=== PATIENT | female | born 1995 | race Caucasian/White ===

== ENCOUNTER → 2022-07-10 10:56 | Outpatient (BNVA) | payer MEDICAID, SELFPAY | PROVIDERS: Visit Provider Advanced Practice Midwife | DX: O99.210 Obesity complicating pregnancy, unspecified trimester (principal); Z3A.00 Weeks of gestation of pregnancy not specified; Z32.01 Encounter for pregnancy test, result positive | CPT/HCPCS: 81025; 99202 ==

== ENCOUNTER 2022-07-25 11:01 | Outpatient (REF) | payer MEDICAID, SELFPAY ==
--- NOTE | ~2022-07-25 | US_ITS ---
EXAMINATION: US OBSTETRICAL ULTRASOUND CLINICAL INFORMATION: Size and dates. COMPARISON: None. LMP: Unsure LMP. Gestational age by maternal dates is not known. Estimated date of delivery by maternal dates is unknown. TECHNIQUE: Routine transabdominal imaging of the pelvis is performed. FINDINGS: There is a single intrauterine gestational sac with visible yolk sac, embryo/fetus, and cardiac activity. There is small subchorionic hemorrhage seen. HR: 169 beats per minute. CRL (crown rump length): 4.76 cm (11 weeks and 4 days +/- 4 days). DEDE (estimated date of delivery): 02/09/2023 +/- 4 days. MATERNAL ADNEXA: The right maternal ovary not seen. The left maternal ovary measures 2.45 x 1.87 x 2.28 cm. There is no significant maternal adnexal mass. No maternal pelvic ascites. US/US OB <= 14 weeks fetus IMPRESSION: 1. Single intrauterine gestation with ultrasound gestational age of 11 weeks 4 days +/- 4 days. 2. Estimated date of delivery is 02/09/2023 +/- 4 days. 3. No maternal adnexal mass or pelvic ascites.
== END 2022-07-25 11:02 | disposition home or self-care (01) ==
LOC: HO.HMGCX 11:01
PROVIDERS: Visit Provider Advanced Practice Midwife
DX: O99.210 Obesity complicating pregnancy, unspecified trimester (principal); E66.01 Morbid (severe) obesity due to excess calories; Z3A.11 11 weeks gestation of pregnancy
CPT/HCPCS: 76801

== ENCOUNTER → 2022-07-31 13:18 | Outpatient (BNVA) | payer MEDICAID, SELFPAY | PROVIDERS: Visit Provider Advanced Practice Midwife | DX: O99.211 Obesity complicating pregnancy, first trimester (principal); E66.01 Morbid (severe) obesity due to excess calories; Z3A.00 Weeks of gestation of pregnancy not specified | CPT/HCPCS: 99212 ==

== ENCOUNTER → 2022-08-05 10:01 | Outpatient (BNVA) | payer MEDICAID, SELFPAY | PROVIDERS: Visit Provider Advanced Practice Midwife | DX: Z34.81 Encounter for supervision of other normal pregnancy, first trimester (principal) | CPT/HCPCS: 99212 ==

== ENCOUNTER 2022-08-22 12:04 | Outpatient (REF) | payer MEDICAID, SELFPAY ==
[2022-08-22 14:14] LABS: Hematocrit 37.3 % (37.0-47.0); Hemoglobin 12.1 g/dl (12.0-16.0); Mean Corpuscular HGB Conc 32.4 g/dl (31.0-35.0); Mean Corpuscular Hemoglobin 26.6 pg (27.0-33.0); Mean Platelet Volume 10.3 fL (9.4-12.3); Platelet Count 272 X10*3/uL (160-400); Red Blood Count 4.55 X10*6/uL (4.20-5.50); Red Cell Distribution Width 12.6 % (11.0-16.0); White Blood Count 11.6 X10*3/uL (4.8-10.8)
[2022-08-22 14:41] LABS: Glucose 1 Hour PP 50gm Dose 146 mg/dL (60-140)
[2022-08-22 15:21] LABS: Amphetamine Screen Urine Not Detected (Not Detect); Barbiturates, Urine Not Detected (Not Detect); Benzodiazepines Screen Urine Not Detected (Not Detect); Cannabinoid Screen Urine Not Detected (Not Detect); Cocaine Screen Urine Not Detected (Not Detect); Fentanyl, urine Not Detected (Not Detect); Opiate Screen Urine Not Detected (Not Detect); Phencyclidine Screen Urine Not Detected (Not Detect)
[2022-08-23 09:14] LABS: Syphilis Screen Nonreactive (Nonreactive)
[2022-08-23 09:17] LABS: HBsAGNum1 0.17 S/CO (0.00-0.99); HIV AB/AG Nonreactive (Nonreactive); HIV Num 1 0.08 S/CO (0.00-0.99); Hepatitis B Surface Antigen Negative (Negative); ~HepC Num1 0.11 S/CO (0.00-0.79); ~Hepatitis C Antibody Nonreactive (Nonreactive)
[2022-09-04 01:21] LABS: CF Ethnicity NOT GIVEN; Cystic Fibrosis NEGATIVE (NEGATIVE)
== END 2022-08-22 12:05 | disposition home or self-care (01) ==
LOC: HO.LAB 12:04
PROVIDERS: Visit Provider Advanced Practice Midwife
DX: Z32.01 Encounter for pregnancy test, result positive (principal); Z11.4 Encounter for screening for human immunodeficiency virus [HIV]
CPT/HCPCS: 80307; 81220; 82950; 85027; 86762; 86780; 86787; 86803; 86850; 86900; 87086; 87340; 87389

== ENCOUNTER 2022-08-26 10:05 | Outpatient (REF) | payer MEDICAID, SELFPAY ==
[2022-08-26 15:38] LABS: CT PCR NOT DETECTED (Not Detect.); NG PCR NOT DETECTED (Not Detect.)
[2022-08-27 12:07] LABS: BV Int Neg Control Negative (Negative); BV Int Pos Control Positive (Positive)
== END 2022-08-26 10:06 | disposition home or self-care (01) ==
LOC: HO.LNP 10:05
PROVIDERS: Visit Provider Advanced Practice Midwife
DX: O99.212 Obesity complicating pregnancy, second trimester (principal); E66.01 Morbid (severe) obesity due to excess calories; Z3A.16 16 weeks gestation of pregnancy
CPT/HCPCS: 81003; 87480; 87491; 87510; 87591; 87660; 88142; 99212

== ENCOUNTER → 2022-09-24 10:29 | Outpatient (BNVA) | payer MEDICAID, SELFPAY | PROVIDERS: Visit Provider Advanced Practice Midwife | DX: O99.212 Obesity complicating pregnancy, second trimester (principal); E66.01 Morbid (severe) obesity due to excess calories; O99.810 Abnormal glucose complicating pregnancy; Z3A.20 20 weeks gestation of pregnancy; Z90.721 Acquired absence of ovaries, unilateral | CPT/HCPCS: 99212 ==

== ENCOUNTER 2022-10-24 10:15 | Outpatient (REF) | payer MEDICAID, SELFPAY | END 2022-10-24 10:16 | disposition home or self-care (01) | LOC: HO.LAB 10:15 | PROVIDERS: Visit Provider Advanced Practice Midwife | DX: Z13.89 Encounter for screening for other disorder (principal) ==

== ENCOUNTER → 2022-10-25 10:56 | Outpatient (BNVA) | payer MEDICAID, SELFPAY | PROVIDERS: Visit Provider Advanced Practice Midwife | DX: O99.212 Obesity complicating pregnancy, second trimester (principal); O99.810 Abnormal glucose complicating pregnancy; O99.512 Diseases of the respiratory system complicating pregnancy, second trimester; J45.909 Unspecified asthma, uncomplicated; Z3A.24 24 weeks gestation of pregnancy | CPT/HCPCS: 99212 ==

== ENCOUNTER 2023-01-16 10:37 | Outpatient (REF) | payer MEDICAID, SELFPAY ==
[2023-01-16 16:27] LABS: CT PCR NOT DETECTED (Not Detect.); NG PCR NOT DETECTED (Not Detect.)
[2023-01-17 09:06] LABS: BV Int Neg Control Negative (Negative); BV Int Pos Control Positive (Positive)
[2023-01-17 10:57] LABS: Allergic to Penicillin? No
== END 2023-01-16 10:38 | disposition home or self-care (01) ==
LOC: HO.LNP 10:37
PROVIDERS: Visit Provider Advanced Practice Midwife
DX: O09.33 Supervision of pregnancy with insufficient antenatal care, third trimester (principal); O36.63X0 Maternal care for excessive fetal growth, third trimester, not applicable or unspecified; O99.213 Obesity complicating pregnancy, third trimester; E66.01 Morbid (severe) obesity due to excess calories; Z3A.36 36 weeks gestation of pregnancy
CPT/HCPCS: 0353U; 81003; 87150; 87480; 87510; 87660; 99212

== ENCOUNTER 2023-01-22 09:56 | Outpatient (REF) | payer MEDICAID, SELFPAY ==
[2023-01-22 10:57] LABS: Hematocrit 36.1 % (37.0-47.0); Hemoglobin 11.6 g/dl (12.0-16.0); Mean Corpuscular HGB Conc 32.1 g/dl (31.0-35.0); Mean Corpuscular Hemoglobin 26.3 pg (27.0-33.0); Mean Corpuscular Volume 81.9 fL (80.0-98.0); Mean Platelet Volume 11.3 fL (9.4-12.3); Platelet Count 230 X10*3/uL (160-400); Red Blood Count 4.41 X10*6/uL (4.20-5.50); Red Cell Distribution Width 13.3 % (11.0-16.0); White Blood Count 9.8 X10*3/uL (4.8-10.8)
[2023-01-22 11:12] LABS: Estimated Average Glucose 117 mg/dL; Hemoglobin A1c % 5.7 %
[2023-01-22 11:51] LABS: Glucose Fasting 70 mg/dL (60-99)
[2023-01-22 12:04] LABS: Glucose 1 Hour 164 mg/dL
[2023-01-22 12:16] LABS: Alanine Aminotransferase 7 U/L (0-31); Aspartate Amino Transferase 11 U/L (5-31)
[2023-01-22 12:20] LABS: HBsAGNum1 0.32 S/CO (0.00-0.99); HIV AB/AG Nonreactive (Nonreactive); HIV Num 1 0.05 S/CO (0.00-0.99); Hepatitis B Surface Antigen Negative (Negative); ~HepC Num1 0.26 S/CO (0.00-0.79); ~Hepatitis C Antibody Nonreactive (Nonreactive)
[2023-01-22 12:22] LABS: Syphilis Screen Nonreactive (Nonreactive)
[2023-01-22 13:56] LABS: Glucose 2 Hour 148 mg/dL
[2023-01-22 15:50] LABS: Glucose 3 Hour 142 mg/dL
== END 2023-01-22 09:57 | disposition home or self-care (01) ==
LOC: HO.LAB 09:56
PROVIDERS: Visit Provider Advanced Practice Midwife
DX: O09.30 Supervision of pregnancy with insufficient antenatal care, unspecified trimester (principal); O99.210 Obesity complicating pregnancy, unspecified trimester; E66.01 Morbid (severe) obesity due to excess calories; O26.899 Other specified pregnancy related conditions, unspecified trimester; R73.09 Other abnormal glucose; Z3A.00 Weeks of gestation of pregnancy not specified
CPT/HCPCS: 36415; 82951; 83036; 84450; 84460; 85027; 86780; 86803; 87340; 87389

== ENCOUNTER 2023-03-03 07:03 | Emergency (ER) | payer MEDICAID, SELFPAY ==
--- NOTE | ~2023-03-03 | US_ITS ---
EXAMINATION: US ABDOMEN COMPLETE CLINICAL INFORMATION: Upper abdominal pain. COMPARISON: None available. TECHNIQUE: Real-time imaging of the abdominal viscera. FINDINGS: PANCREAS: Normal. ABDOMINAL AORTA: The proximal, mid, and distal segments are normal in caliber. INFERIOR VENA CAVA: Visualized portions are normal. LIVER: Normal. The liver is normal in size. The liver contour is normal. Parenchymal echogenicity is normal. No focal hepatic lesion. There is no intrahepatic biliary duct dilatation seen. GALLBLADDER: There are a few nonmobile echogenic stones. The gallbladder is physiologically distended without evidence of stones, sludge, polyps, wall thickening or pericholecystic fluid. COMMON BILE DUCT: Normal in caliber measuring 0.22 cm in diameter. RIGHT KIDNEY: Normal. No hydronephrosis. No renal calculi or focal parenchymal lesions. The kidney measures 12.7 cm in maximum dimension. LEFT KIDNEY: Normal. No hydronephrosis. No renal calculi or focal parenchymal lesions. The kidney measures 12.6 cm in maximum dimension. SPLEEN: Normal. The spleen measures 10.9 cm in maximum dimension. FREE FLUID: None. US/US abdomen complete IMPRESSION: 1. There are a few nonmobile echogenic gallstones without wall thickening. 2. The rest of the abdominal ultrasound is unremarkable.
[2023-03-03 07:06] VITALS: BP 111/62; PULSE 73; RESP 18; TEMP 36.7; O2SAT 99; BMI 39.9
[2023-03-03 07:23] LABS: Hematocrit 39.9 % (37.0-47.0); Hemoglobin 12.7 g/dl (12.0-16.0); Mean Corpuscular HGB Conc 31.8 g/dl (31.0-35.0); Mean Corpuscular Hemoglobin 26.8 pg (27.0-33.0); Mean Corpuscular Volume 84.2 fL (80.0-98.0); Mean Platelet Volume 10.3 fL (9.4-12.3); Platelet Count 368 X10*3/uL (160-400); Red Blood Count 4.74 X10*6/uL (4.20-5.50); Red Cell Distribution Width 12.8 % (11.0-16.0); White Blood Count 16.7 X10*3/uL (4.8-10.8)
[2023-03-03 07:37] LABS: Alanine Aminotransferase 43 U/L (0-31); Albumin Level 4.1 g/dL (3.5-5.0); Alkaline Phosphatase 109 U/L (39-117); Anion Gap 11 (12-20); Aspartate Amino Transferase 78 U/L (5-31); Bilirubin Direct 0.3 mg/dL (0.0-0.5); Bilirubin Total 0.8 mg/dL (0.0-1.0); Blood Urea Nitrogen 8 mg/dL (9-16); Calcium 9.2 mg/dL (8.4-10.2); Carbon Dioxide 26 mmol/L (22-29); Chloride 108 mmol/L (96-108); Creatinine Clr Calc Pharmacy 135.7; Estimated Glomerular Filt Rate > 60; Glucose Random 149 mg/dL (60-115); Lipase 24 U/L (8-78); Potassium 4.2 mmol/L (3.3-5.1); Sodium 141 mmol/L (135-145); Total Protein 6.6 g/dL (6.5-8.0)
--- NOTE | 2023-03-03 07:45 | ED.ABDPAIN ---
HPI - Abdominal Pain General Chief Complaint: Abdominal Pain Stated Complaint: UPPER ABD AND BACK PAIN Time Seen by Provider: 03/03/23 07:28 Source: patient Mode of arrival: ambulatory Limitations: no limitations History of Present Illness MD elicited complaint: abdominal pain Pertinent past history: none Onset (ago): hour(s) (3) Pain Consistency: intermittent Location: epigastric Severity: moderate Pain scale (0-10): 6 Quality: aching Radiation: RUQ and R flank Migration to: no migration Exacerbating factors: other (Lying down) Relieving factors: nothing Associated symptoms: nausea Related Data Hx Last Menstrual Period: Has not had. Since giving in January to her child Home Medications Medication Instructions Recorded Confirmed OEE-akxb-IY-omega 3-fat com #1 27 cap PO 07/10/22 01/16/23 mg-1 mg-300 mg capsule albuterol sulfate 90 mcg/actuation 2 puff inhalation Q4H PRN 07/31/22 01/16/23 aerosol inhaler (ProAir HFA) Previous Rx's Medication Instructions Recorded vitamin with calcium 1 tab PO DAILY #90 tabs 01/16/23 no.72-iron 27 mg-folic acid 1 mg tablet ( Vitamins Plus Low Iron) metronidazole 500 mg tablet 500 mg PO Q12H #14 tabs 01/17/23 Allergies Allergy/AdvReac Type Severity Reaction Status Date / Time No Known Allergies Allergy Verified 01/16/23 10:52 COUNTS INCLUDE 234 BEDS AT THE [facility] Past Medical History Medical History Asthma Depression Surgical History S/P removal of ovarian cyst Hx Last Menstrual Period: Has not had. 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 at home: Yes Do you presently have visiting nurse or other home services: No Alcohol intake: never Patient Tobacco Use Status: Never used Tobacco Smoked in Last 30 Days: No e-Cigarette/Vaping Use: Never Used Use of substances other than those prescribed or required for medical reasons: No Advance Directives: No Advance Directives Information Provided: No Patient : No Physical Exam ED Vital Signs: Vital Signs - 24 hr 03/03/23 07:06 03/03/23 09:01 Temperature 98.1 F Pulse Rate 73 75 Respiratory Rate 18 12 Blood Pressure 111/62 99/70 Pulse Oximetry 99 95 Oxygen Delivery Method Room Air Room Air BMI result Body Mass Index 39.9 GEN: Well developed, no acute distress, alert, oriented HEENT: Normocephalic, atraumatic, normal external ears, nose appears normal, no oropharyngeal edema or exudates Eyes: Normal to appearance Neck: Supple, no lymphadenopathy Respiratory: Talks in complete sentences, no respiratory distress, clear to auscultation bilaterally Cardiovascular: Regular rate and rhythm, no murmurs rubs or gallops Abdomen: Soft, nontender, nondistended, no guarding, no rebound Back: No CVA tenderness Extremities: No clubbing cyanosis or edema Neurologic: No focal neurologic deficits, cranial nerves 2-12 intact, strength is 5/5 bilaterally Skin: No rash Course Course Course Narrative: 27-year-old female. by about 2-3 months presents with upper abdominal pain. Her repeat evaluation reveals a normal abdomen, no tenderness, rebound or guarding, negative Bolden sign. Ultrasound identified gallstones. I suspect with epigastric abdominal pain radiating around to the right side and right flank that she is in fact having biliary colic. Again the differential diagnosis at this point with predominantly include gastritis or ulcer. Will start the patient on a PPI. Will refer the patient to General surgery. Patient is aware of reasons to return to the emergency department. She has been counseled regarding an appropriate diet. Medical Decision Making Medical Decision Making MDM Narrative: 27-year-old female presents with upper abdominal pain. Her examination is benign. Differential diagnosis could include gastritis, ulcer, biliary colic, pancreatitis, IBD, IBS, renal colic, gastroenteritis, bacterial overgrowth. My plan for this patient will include ultrasound to rule out hydronephrosis, biliary related symptoms, pancreatitis. Will check laboratory analysis including a CBC, chemistry, lipase. Will provide patient with Tylenol and a GI cocktail as well as an H2 rich to see if this will improve her symptoms. Patient is nontoxic appearing at this time. Do not see an indication for CT scan. Doubt vascular catastrophe. There are no palpable masses or pulsatile masses on exam. Differential Diagnosis Differential Diagnoses: The differential diagnosis associated with the presentation includes (See above) Biliary colic Admission/Observation Consideration of admission/observation: Escalation of care including admission/observation considered Lab Data MDM Lab Attestation statement: I reviewed the patient's lab results. 03/03/23 07:13 03/03/23 07:13 Labs: Lab Results 03/03/23 03/03/23 03/03/23 Range/Units 07:13 07:13 08:59 WBC 16.7 H (4.8-10.8) X10*3/uL RBC 4.74 (4.20-5.50) X10*6/uL Hgb 12.7 (12.0-16.0) g/dl Hct 39.9 (37.0-47.0) % MCV 84.2 (80.0-98.0) fL MCH 26.8 L (27.0-33.0) pg MCHC 31.8 (31.0-35.0) g/dl RDW 12.8 (11.0-16.0) % Plt Count 368 D (160-400) X10*3/uL MPV 10.3 (9.4-12.3) fL Absolute Nucleated RBC 0.000 (0.0-0.012) X10*3/uL Nucleated RBC % (auto) 0.0 (0.0-0.2) /100WBC Sodium 141 (135-145) mmol/L Potassium 4.2 (3.3-5.1) mmol/L Chloride 108 (96-108) mmol/L Carbon Dioxide 26 (22-29) mmol/L Anion Gap 11 L (12-20) BUN 8 L (9-16) mg/dL Creatinine 0.67 (0.5-1.4) mg/dL Estim Creat Clear Calc 135.7 Estimated GFR > 60 Random Glucose 149 H (60-115) mg/dL Calcium 9.2 (8.4-10.2) mg/dL Total Bilirubin 0.8 (0.0-1.0) mg/dL Direct Bilirubin 0.3 (0.0-0.5) mg/dL AST 78 H (5-31) U/L ALT 43 H (0-31) U/L Alkaline Phosphatase 109 (39-117) U/L Total Protein 6.6 (6.5-8.0) g/dL Albumin 4.1 (3.5-5.0) g/dL Lipase 24 (8-78) U/L Urine Color Yellow Urine Appearance Clear Urine pH >= 9.0 (5.0-9.0) Ur Specific [place] 1.025 (1.005-1.025) Urine Protein Trace (Neg-Trace) mg/dL Urine Glucose (UA) Negative (Negative) mg/dL Urine Ketones Negative (Negative) mg/dL Urine Blood Negative (Negative) Urine Nitrite Negative (Negative) Ur Leukocyte Esterase Moderate (2+) H (Negative) Urine RBC 0-2 (0-2) /HPF Urine WBC 11-20 H (0-5) /HPF Ur Squamous Epith Cells 3-5 (0-2) /HPF Urine Bacteria 2+ (None Seen) Hyaline Casts 0-2 (0-2) /LPF Urine Test (NEGATIVE) 03/03/23 Range/Units 08:59 WBC (4.8-10.8) X10*3/uL RBC (4.20-5.50) X10*6/uL Hgb (12.0-16.0) g/dl Hct (37.0-47.0) % MCV (80.0-98.0) fL MCH (27.0-33.0) pg MCHC (31.0-35.0) g/dl RDW (11.0-16.0) % Plt Count (160-400) X10*3/uL MPV (9.4-12.3) fL Absolute Nucleated RBC (0.0-0.012) X10*3/uL Nucleated RBC % (auto) (0.0-0.2) /100WBC Sodium (135-145) mmol/L Potassium (3.3-5.1) mmol/L Chloride (96-108) mmol/L Carbon Dioxide (22-29) mmol/L Anion Gap (12-20) BUN (9-16) mg/dL Creatinine (0.5-1.4) mg/dL Estim Creat Clear Calc Estimated GFR Random Glucose (60-115) mg/dL Calcium (8.4-10.2) mg/dL Total Bilirubin (0.0-1.0) mg/dL Direct Bilirubin (0.0-0.5) mg/dL AST (5-31) U/L ALT (0-31) U/L Alkaline Phosphatase (39-117) U/L Total Protein (6.5-8.0) g/dL Albumin (3.5-5.0) g/dL Lipase (8-78) U/L Urine Color Urine Appearance Urine pH (5.0-9.0) Ur Specific [place] (1.005-1.025) Urine Protein (Neg-Trace) mg/dL Urine Glucose (UA) (Negative) mg/dL Urine Ketones (Negative) mg/dL Urine Blood (Negative) Urine Nitrite (Negative) Ur Leukocyte Esterase (Negative) Urine RBC (0-2) /HPF Urine WBC (0-5) /HPF Ur Squamous Epith Cells (0-2) /HPF Urine Bacteria (None Seen) Hyaline Casts (0-2) /LPF Urine Test NEGATIVE (NEGATIVE) Independent Interpretation I performed an independent interpretation of an: Ultrasound (gallstones, no evidence of acute gabby.) Radiology Impression Discussion of test interpretation with radiology: I have reviewed the radiologist's reading. ( US/US abdomen complete IMPRESSION: 1. There are a few nonmobile echogenic gallstones without wall thickening. 2. The rest of the abdominal ultrasound is unremarkable. Dictated By:Desmond Manrique MDSigned By:<Electronically signed by Desmond Manrique MD in [place]>03/03/23 1300) Tests considered The following testing was considered but not selected: CT scan abdomen Prescription Management I considered prescription management with: Pain Medication Medications Administered Discontinued Medications Generic Name Dose Route Start Last Admin Trade Name Freq PRN Reason Stop Dose Admin Acetaminophen 975 mg 03/03/23 07:38 03/03/23 07:56 Acetaminophen 325 Mg Tablet PO 03/03/23 07:39 975 mg ONCE ONE Administration Al Hydroxide/Mg Hydroxide 30 ml 03/03/23 07:38 03/03/23 07:56 Magnesium Hydrox/Alum Hydrox 30 Ml Oral.Susp PO 03/03/23 07:39 30 ml ONCE ONE Administration Belladonna Alkaloids/Phenobarbital 10 ml 03/03/23 07:38 03/03/23 07:56 Phenobarb/Hyoscy/Atropine/Scop 10 Ml Elixir PO 03/03/23 07:39 10 ml ONCE ONE Administration Famotidine 20 mg 03/03/23 07:38 03/03/23 07:57 Famotidine 20 Mg Tablet PO 03/03/23 07:39 20 mg ONCE ONE Administration Lidocaine HCl 15 ml 03/03/23 07:38 03/03/23 07:56 Lidocaine Hcl Viscous 2 % 15 Ml Solution MUCOUS MEM 03/03/23 07:39 15 ml ONCE ONE Administration Discharge Plan Discharge Clinical Impression: Abdominal pain, Leukocytosis, LFT elevation, Biliary colic Patient Disposition: Home, Self-Care Instructions: Abdominal Pain (ED), Biliary Colic (ED), Leukocytosis (ED) Prescriptions: No Action metronidazole 500 mg tablet 500 mg PO Q12H Qty: 14 0RF ZTB-bjcl-CO-omega 3-fat com #1 27-1-300 mg capsule PO albuterol sulfate [ProAir HFA] 90 mcg/actuation HFA aerosol inhaler 2 puff inhalation Q4H PRN Vitamin Plus Low Iron 27 mg iron- 1 mg tablet 1 tab PO DAILY Qty: 90 4RF Referrals: Gustavo Mijares MD [Physician] - 1 week
[2023-03-03] MEDS: Acetaminophen 325 MG TABLET 975 MG PO (07:56)
[2023-03-03] MEDS: Magnesium Hydrox/Alum Hydrox 30 ML ORAL.SUSP PO (07:56)
[2023-03-03] MEDS: Lidocaine HCl Viscous 2 % 15 ML SOLUTION MUCOUS MEM (07:56)
[2023-03-03] MEDS: PHENobarb/Hyoscy/Atropine/Scop 10 ML ELIXIR PO (07:56)
[2023-03-03] MEDS: Famotidine 20 MG TABLET PO (07:57)
[2023-03-03 09:01] VITALS: BP 99/70; PULSE 75; RESP 12; O2SAT 95
[2023-03-03 09:30] LABS: Appearance Urine Clear; Color Urine Yellow; Glucose Urine UA Negative (Negative); Leukocyte Esterase Urine Moderate (2+) (Negative); Nitrite Urine Negative (Negative); PH >= 9.0 (5.0-9.0); Specific Gravity - Urine 1.025 (1.005-1.025); UMIC TRIGGER UACC YES; Urine Blood Negative (Negative); Urine Ketones Negative (Negative); Urine Protein Trace mg/dL (Neg-Trace)
[2023-03-03 09:35] LABS: Bacteria Urine 2+ (None Seen); Hyaline Casts Urine 0-2 /LPF (0-2); RBC Urine 0-2 /HPF (0-2); UACC Culture Trigger YES
[2023-03-03 09:41] LABS: UPreg QC Valid YES; Urine Pregnancy NEGATIVE (NEGATIVE)
[2023-03-03 13:39] VITALS: BP 114/77; PULSE 73; RESP 12; O2SAT 100
== END 2023-03-03 13:45 | disposition home or self-care (01) ==
PROVIDERS: Emergency Provider Emergency Medicine
DX: R10.11 Right upper quadrant pain (principal); K80.50 Calculus of bile duct without cholangitis or cholecystitis without obstruction; D72.829 Elevated white blood cell count, unspecified
CPT/HCPCS: 36415; 76700; 80048; 80076; 81001; 81025; 83690; 85027; 87086; 99284

== ENCOUNTER 2023-04-06 19:22 | Emergency (ER) | payer MEDICAID, SELFPAY ==
[2023-04-06 19:52] VITALS: BP 118/76; PULSE 89; RESP 14; TEMP 36.5; O2SAT 100; BMI 40.1
--- NOTE | 2023-04-06 19:52 | ED_ITS ---
HPI - Dental/Oral General Chief complaint: Dental/Oral Stated complaint: Rightside tooth pain Time Seen by Provider: 04/06/23 20:01 Source: patient Mode of arrival: ambulatory Limitations: no limitations History of Present Illness HPI Narrative: Patient is a 27-year-old female Presents emergency department for evaluation of right-sided dental pain. Reports Onset was suddenly today, is radiating side of her face, into the ear. Denies any recent dental infections, dental procedures, or known dental fracture. At 1600 she took acetaminophen ibuprofen without significant improvement in pain. Denies fever, chills, hot or cold sensitivity, neck pain, chest pain, post-auricular pain. Teeth map: 1. Dental fracture/ caries Related Data Home Medications Medication Instructions Recorded Confirmed IZP-xeon-TV-omega 3-fat com #1 27 cap PO 07/10/22 01/16/23 mg-1 mg-300 mg capsule albuterol sulfate 90 mcg/actuation 2 puff inhalation Q4H PRN 07/31/22 01/16/23 aerosol inhaler (ProAir HFA) Previous Rx's Medication Instructions Recorded vitamin with calcium 1 tab PO DAILY #90 tabs 01/16/23 no.72-iron 27 mg-folic acid 1 mg tablet ( Vitamins Plus Low Iron) metronidazole 500 mg tablet 500 mg PO Q12H #14 tabs 01/17/23 pantoprazole 40 mg tablet,delayed 40 mg PO DAILY #20 tabs 03/03/23 release amoxicillin 875 mg-potassium 1 tab PO BID #14 tabs 04/06/23 clavulanate 125 mg tablet chlorhexidine gluconate 0.12 % 15 ml buccal BID #118 mL 04/06/23 mouthwash naproxen 500 mg tablet 500 mg PO BID PRN pain #20 tabs 04/06/23 Allergies Allergy/AdvReac Type Severity Reaction Status Date / Time No Known Allergies Allergy Verified 01/16/23 10:52 Review of Systems Review of Systems: Constitutional : No Fever, No Chills, No changes in PO intake, No difficulty speaking,? no recent dental procedure, no heat or cold intolerance while eating, no recent face trauma, ENT/Mouth : No swallowing difficulty, no change in voice, No jaw pain, No facial swelling, no drooling, no trismus, no bleeding, no throat swelling, no lacerations, no tongue swelling, gum swelling, Eyes: No Eye Pain, No periorbital Swelling Cardiovascular : No Chest Pain, No SOB Respiratory : No Cough, No Sputum, No Wheezing, No Smoke Exposure, No Dyspnea Gastrointestinal : No Nausea, No Vomiting, No Diarrhea Genitourinary : No Dysuria Musculoskeletal : No Myalgias Skin : No rash, no facial swelling or redness, Neuro : No Weakness, No Numbness, No Headache Yes all other systems are reviewed and are negative [facility] Past Medical History Attestation statement: The following information was validated with the patient. Source: old records reviewed Medical History Asthma Depression Surgical History S/P removal of ovarian cyst Family History Family History Maternal Grandmother Colon cancer Social History Social History Household Members: Significant Other and Family Housing: Apartment Are you a primary chronic care nurse to a significant other at home: Yes Do you presently have visiting nurse or other home services: No Alcohol intake: never Patient Tobacco Use Status: Never used Tobacco e-Cigarette/Vaping Use: Never Used Advance Directives: No Advance Directives Information Provided: No Physical Exam Vital Signs: Vital Signs: Last Vital Signs Temp 97.7 F 04/06/23 19:52 Pulse 89 04/06/23 19:52 Resp 14 04/06/23 19:52 BP 118/76 04/06/23 19:52 Pulse Ox 100 04/06/23 19:52 O2 Del Method Room Air 04/06/23 19:52 BMI result Body Mass Index 40.1 Appearance: Alert. Oriented X3. No acute distress. Head: Normal external exam. Normocephalic. Atraumatic. Eyes: PERRLA. EOMI. Conjunctiva and sclera normal. Eyelids normal. ENT: EAC normal. TM's Normal. Pharynx normal. Uvula midline. Moist mucous membranes.? ?No trismus noted.? No drooling noted.? No muffled voice noted. Dentition:? Patient with poor dentition throughout with multiple old fractured teeth with multiple dental caries.? Gingival within normal limits.? No fluctuance.? Not consistent with peritonsillar abscess. Not consistent with dental abscess.? No salivary duct obstruction noted. Neck: Normal inspection. Neck supple. FROM. No adenopathy. Thyroid Normal. No meningeal signs. No neck mass noted.? Trachea midline. CVS: Normal heart rate and rhythm. Heart sound normal. No murmurs noted. Pulses normal throughout. Respiratory: No respiratory distress. Painless inspiration. Breath sounds normal. No wheezes/rales/rhonchi noted. Chest nontender. ?No accessory muscle usage noted or decreased air movement noted. Back:? Full range of motion noted. Skin: Skin warm and dry.? Normal skin color.? Normal skin turgor. No rashes/lesions/lacerations noted. Extremities: Extremities exhibit normal range of motion.? Extremities nontender. Neuro: Oriented X 3.? No motor deficit.? No sensory deficit.? Reflexes normal. Medical Decision Making Medical Decision Making [facility] Narrative: Patient is a 27-year-old female who presents emergency department for evaluation of dental pain as noted in HPI. She is overall well-appearing, nontoxic, afebrile. There is erythema and swelling surrounding the dental fracture and care area right lower mouth #32, no trismus, no drooling, uvula is midline, floor the oral cavity is soft. Physical examination does not appear consistent with dental infection at this time without evidence of abscess, no postauricular pain, erythema, or swelling not consistent with mastoiditis. Presentation not consistent with trigeminal neuralgia. Not consistent with sialdenitis, sialolithiasis. Discussed plan of care for discharge home with oral antibiotic, chlorhexidine mouthwash, naproxen, outpatient follow-up with dental provider. Reviewed worrisome signs and symptoms that warrant re-evaluation in the emergency department. All questions answered. Stable for discharge. Differential Diagnosis Differential Diagnoses: The differential diagnosis associated with the presentation includes (As noted above) Tests considered The following testing was considered but not selected: I considered serum labs to evaluate for leukocytosis, CT soft tissue neck to evaluate for potential abscess, however as noted in MDM, did not feel that either were warranted at this time. Discharge Plan Discharge Clinical Impression: Dental infection, Dental caries Patient Disposition: Home, Self-Care Additional Instructions: As discussed, please call your dentist tomorrow to arrange for a follow-up visit. I have sent a prescription for antibiotic to your pharmacy, this is to treat dental infection, please complete the entire course. Additionally have sent a prescription for mouthwash please use this as prescribed. You may take naproxen twice daily as prescribed for pain, do not take Motrin/ibuprofen/Advil/Aleve/aspirin while taking this medication. You may additionally take Tylenol You may return back to emergency department any new or worsening symptoms or concerns; this includes but is not limited to severe worsening pain, fevers, chills, chest pain, shortness of breath, severe headache, neck stiffness/ pain Prescriptions: New amoxicillin-pot clavulanate 875-125 mg tablet 1 tab PO BID Qty: 14 0RF chlorhexidine gluconate 0.12 % mouthwash 15 ml buccal BID Qty: 118 0RF naproxen 500 mg tablet 500 mg PO BID PRN (Reason: pain) Qty: 20 0RF No Action metronidazole 500 mg tablet 500 mg PO Q12H Qty: 14 0RF pantoprazole 40 mg tablet,delayed release (DR/EC) 40 mg PO DAILY Qty: 20 0RF TIE-lidf-DS-omega 3-fat com #1 27-1-300 mg capsule PO albuterol sulfate [ProAir HFA] 90 mcg/actuation HFA aerosol inhaler 2 puff inhalation Q4H PRN Vitamin Plus Low Iron 27 mg iron- 1 mg tablet 1 tab PO DAILY Qty: 90 4RF Referrals: [facility] [Primary Care Provider] - Interventions: ED Discharge Assessment Last Done: 04/06/23 20:17 Discharge Date/Time: 04/06/23 20:18
== END 2023-04-06 20:18 | disposition home or self-care (01) ==
PROVIDERS: Emergency Provider Internal Medicine
DX: K04.7 Periapical abscess without sinus (principal); K02.9 Dental caries, unspecified
CPT/HCPCS: 99282